=== PATIENT | female | born 1955 | race Caucasian/White ===

== ENCOUNTER 2018-07-07 10:52 | Outpatient (CLI) | payer MEDICAID | END 2018-07-07 10:53 | disposition home or self-care (01) | LOC: C.LAB 10:52 | DX: H93.13 Tinnitus, bilateral (principal) ==

== ENCOUNTER 2018-07-28 13:21 | Outpatient (CLI) | payer MEDICAID | END 2018-07-28 13:22 | disposition home or self-care (01) | LOC: C.MRIC 13:21 ==